=== PATIENT | female | born 1990 | race Two or more races ===

== ENCOUNTER 2016-05-02 04:46 | Inpatient (IN) | payer SELFPAY ==
[~2016-05-02] VITALS: Ht 160 cm; Wt 101.6 kg
[2016-05-02] MEDS ORDERED: LIDOCAINE 1% PF 30 ML VIAL. INJ PRN (05:00)
[2016-05-02] MEDS ORDERED: OXYTOCIN 30 UNIT/500 ML PREMIX 500 ML IV PRN ×3 (05:00→20:45)
[2016-05-02] MEDS ORDERED: MAG HYDROX/AL HYDROX/SIMETH 30 ML ORAL.SUSP PO PRN ×2 (05:00→20:45)
[2016-05-02] MEDS ORDERED: 0.9 % SODIUM CHLORIDE 10 ML DISP.SYRIN. IV PRN ×2 (05:00→20:45)
[2016-05-02] MEDS ORDERED: TERBUTALINE 1 MG/ML VIAL. SQ PRN (05:00)
[2016-05-02] MEDS ORDERED: BUTORPHANOL 2 MG VIAL. IV PRN (05:00)
[2016-05-02] MEDS ORDERED: ACETAMINOPHEN 325 MG TABLET. PO PRN ×2 (05:00→20:45)
[2016-05-02] MEDS ORDERED: ONDANSETRON PF 4 MG/2 ML VIAL. IV PRN (05:00)
[2016-05-02] MEDS ORDERED: CITRIC ACID/SODIUM CITRATE 30 ML SOLUTION. PO PRN (05:00)
[2016-05-02] MEDS ORDERED: FENTANYL PF 100 MCG/2 ML VIAL. IV PRN (05:00)
[2016-05-02] MEDS ORDERED: IBUPROFEN 800 MG TABLET. PO PRN (05:00)
[2016-05-02 05:20] VITALS: BP 120/72
[2016-05-02] MEDS: IV RINGERS,LACTATED 1000ML 1,000 ML IV SCH ×3 (05:23→18:09)
[2016-05-02] MEDS ORDERED: OXYTOCIN in NORMAL SALINE PREMIX 30 UNIT/500 ML BAG. IV ONE (05:30)
[2016-05-02 05:43] LABS: HEMATOCRIT 29.5 % (36.0-47.0); HEMOGLOBIN 9.2 g/dL (12.0-15.5); RED BLOOD COUNT 4.22 x10^6/uL (3.50-5.40); WHITE BLOOD COUNT 7.8 x10^3/uL (4.0-11.0)
[2016-05-02] MEDS ORDERED: PHENYLEPH/MINERAL OIL/PETROLAT RECTAL OINTMENT 28GM TUBE. RC PRN (20:45)
[2016-05-02] MEDS ORDERED: DIPHENHYDRAMINE HCL 25 MG CAPSULE PO PRN (20:45)
[2016-05-02] MEDS ORDERED: HYDROCORTISONE 1% TOPICAL OINTMENT 30GM TUBE. TP PRN (20:45)
[2016-05-02] MEDS ORDERED: ZOLPIDEM 5 MG TABLET. PO PRN (20:45)
[2016-05-02] MEDS ORDERED: BENZOCAINE 20% TOPICAL AEROSOL SPRAY 57GM CAN. TP PRN (20:45)
[2016-05-02] MEDS ORDERED: SIMETHICONE 80 MG TAB.CHEW PO PRN (20:45)
[2016-05-02] MEDS ORDERED: MAGNESIUM HYDROXIDE 2,400 MG/30 ML ORAL.SUSP. PO PRN (20:45)
[2016-05-02] MEDS ORDERED: HYDROCODONE/APAP 5/325MG TABLET. PO PRN (20:45)
--- NOTE | 2016-05-02 20:50 | PDOC ---
VAGINAL DELIVERY DATE DATE: 05/02/16 TIME: 20:46 : 2 Para: 1 EDC: May 09, 2016 VAGINAL DELIVERY: VTX PLACENTA: Spontaneous SEX: Male WEIGHT Weight [7#10oz ] Nuchal Cord: No Amniotic Fluid: Clear PAIN: Natural EPISIOTOMY: No EXTENSION: Yes EBL 300cc COMPLICATIONS precipitous delivery CONDITION Stable Signs of Intrauterine Infectio: None Shoulder Dystocia: No DIAGNOSIS TIUP del Problems: MARTHA VICENTE MD May 02, 2016 20:50
--- NOTE | 2016-05-02 20:52 | PDOC1 ---
OB - History Hx of Present Care: Good Care Ultrasounds: Normal mid trimester US Obstetrical Complications: None Medical Complications: None Past Family/Social History * Past Medical, Surgical, Family and Obstetric Histories reviewed from chart. Blood Type: O+ Rubella: Immune RPR/VDRL: Negative GBS Status: Negative HBsAG: Negative OB - Chief Complaint & HPI Date of Admission: Date of Admission: May 02, 2016 at 04:46 Chief Complaint/History : 2 Para: 1 EDC: May 09, 2016 Reason for admission: induction of labor Indication for induction: other Admission Nurse Assessment Rev: Yes Problems: OB - Admission Exam Physical Exam Vitals: VS - Last 72 Hours, by Label Date Time Temp Pulse Resp B/P Pulse Ox O2 Delivery O2 Flow Rate FiO2 05/02/16 19:30 20 Room Air 05/02/16 05:20 98.3 90 18 120/72 Room Air 98.3 HEENT: Normal, Nasal Mucosa Normal, Oropharynx Normal, Moist Membranes, Fontanelles Normal Heart: Regular Rate Lungs: Clear, Equal Abdomen: Gravid Extremities: Normal Pulses, No tenderness or swelling Reflexes: Normal Cervical Dilatation: 2cm Effacement: 25% Station: Ballotable Amniotic Fluid: Clear Heart Rate: Normal Accelerations: Accelerations Present Decelerations: No decelerations Short Term Variability: Present Contractions on Admission: >10 Minutes Apart Intensity: Mild Assessment/Plan Assessment/Plan TIUP Induction ACS MARTHA VICENTE MD May 02, 2016 20:52
[2016-05-02] MEDS: IBUPROFEN 800 MG TABLET. PO SCH (21:43)
[2016-05-02 23:15] VITALS: BP 105/56
[2016-05-03 00:19] VITALS: BP 110/92
[2016-05-03 05:00] VITALS: BP 109/61
[2016-05-03] MEDS: IBUPROFEN 800 MG TABLET. PO SCH ×2 (06:00→09:05)
[2016-05-03 06:10] LABS: BASO % 0 % (0-3); EOS % 0 % (0-3); HEMOGLOBIN 9.2 g/dL (12.0-15.5); LYMPH # 1.6 x10^3/uL (1.0-4.8); LYMPH % 14 % (24-48); MEAN CORPUSCULAR HEMOGLOBIN 22 pg (25-35); MEAN CORPUSCULAR HGB CONC 31 g/dL (31-37); MEAN CORPUSCULAR VOLUME 70 fL (79-100); MONO % 6 % (0-9); NEUT % 79 % (31-73); PLATELET COUNT 274 x10^3/uL (140-400); RED BLOOD COUNT 4.27 x10^6/uL (3.50-5.40); RED CELL DISTRIBUTION WIDTH 23.6 % (11.5-14.5); WHITE BLOOD COUNT 11.5 x10^3/uL (4.0-11.0)
[2016-05-03] MEDS: FERROUS SULFATE 325 MG TABLET PO SCH ×2 (08:00→08:30)
[2016-05-03 12:19] VITALS: BP 123/63
[2016-05-03 13:30] LABS: ANISOCYTOSIS MOD; HYPOCHROMIA MOD; MICROCYTOSIS MOD; PLT ESTIMATE ADEQUATE (ADEQUATE)
[2016-05-03 13:33] LABS: OVALOCYTES OCC
[2016-05-03 20:20] VITALS: BP 124/78
[2016-05-04 05:30] VITALS: BP 100/69
[2016-05-04] MEDS ORDERED: HYDR-971 PO (10:10)
[2016-05-04] MEDS ORDERED: NAPR500T3 PO (10:10)
--- NOTE | 2016-05-04 10:12 | PDOC3 ---
OB DISCHARGE SUMMARY DATE OF ADMISSION: 05/02/16 DATE OF DISCHARGE: 05/04/16 REASON FOR ADMISSION: Induction of labor PROCEDURES: Ultrasound INTRAPARTUM PROCEDURES: Spontanous Vag Deliv PROCEDURES: None OPERATIONS: None DISCHARGE DIAGNOSIS: Term Delivered DISCHARGE INFORMATION: Activity, Diet HOSPITAL COURSE Unremarkable CONDITION AT DISCHARGE Stable MARTHA VICENTE MD May 04, 2016 10:12
[2016-05-04 10:50] VITALS: BP 106/60
[2016-05-04 13:19] VITALS: BP 107/64
--- NOTE | 2016-05-05 00:23 | PN ---
DATE: 05/03/2016 SUBJECTIVE: The patient is without any complaints. OBJECTIVE: VITAL SIGNS: Stable. Uterus nontender to palpation. ASSESSMENT AND PLAN: Follow up in the morning. MARTHA VICENTE MD DR: BEL/luc JOB#: [id number] / [id number]
== END 2016-05-04 16:00 | disposition home or self-care (01) | DRG 775 ==
LOC: 3 SO LND 04:46 → 3 NORTH 23:02
PROVIDERS: ADMIT Specialist; ATTEND Specialist
PROC: 10E0XZZ Delivery of Products of Conception, External Approach (ICD-10-PCS; principal; 2016-05-02)
PROC: 3E033VJ Introduction of Other Hormone into Peripheral Vein, Percutaneous Approach (ICD-10-PCS; 2016-05-02)
PROC: 0KQM0ZZ Repair Perineum Muscle, Open Approach (ICD-10-PCS; 2016-05-02)
DX: O62.3 Precipitate labor (principal); Z37.0 Single live birth; Z3A.39 39 weeks gestation of pregnancy; O70.1 Second degree perineal laceration during delivery
CPT/HCPCS: 36415; 85007; 85027; 86593; 86850; 86900; 86901; J2590; J7120